=== PATIENT | male | born 1970 | race Caucasian/White ===

== ENCOUNTER 2017-02-03 09:45 | Emergency (ER) | payer OTHER ==
--- NOTE | ~2017-02-03 | CT71 ---
[facility] RADIOLOGY TEXT RESULTS PATIENT: EMETERIO RODRIGUEZ LOCATION: SED : 74 UNIT #: [id number] AGE: [address]: Blayne Shepard MD SEX: M ORDER DR: [id number] [place] [id number] E MR#: [id number] #: [id number] NAME: EMETERIO RODRIGUEZ : 1970 SEX: M STUDY DATE/TIME: 02/03/2017 9:47 UNIT: SED ROOM: STUDY DESCRIPTION: CT Head Wo Contrast Attending Physician: Blayne Shepard M.D. Ordering Physician: Blayne Shepard M.D. Primary Care Physician: Primary Care Physician No MEDICAL IMAGING REPORT This report is preliminary unless electronic signature is present. EXAM CT head without contrast. INDICATIONS Laceration to the forehead. Head injury. Hit head on trailer hitch. TECHNIQUE CT head without contrast. This CT exam was performed with one or more of the following radiation dose reduction techniques: automatic exposure control, adjustment of mA and/or kV according to patient size, and iterative reconstruction. COMPARISON None available. FINDINGS Axial noncontrast images were obtained from the skull base to the vertex. Ventricular size and configuration are normal. There is no evidence of acute infarct or hemorrhage. There are no extraaxial fluid collections. No mass lesion or mass effect is seen. There are no skull fractures. IMPRESSION Laceration over the left frontal convexity. No underlying fracture or foreign body. No acute intracranial findings. Dictated by... Venu Calloway M.D. [facility] A Service [facility] RADIOLOGY TEXT RESULTS PATIENT: EMETERIO RODRIGUEZ LOCATION: SED : 74 UNIT #: [id number] AGE: [address]: Blayne Shepard MD SEX: M ORDER DR: THIS IS AN ELECTRONICALLY VERIFIED REPORT Venu Calloway M.D. at 02/03/2017 2:37 PM Love TD: 02/03/2017 12:17 JOB #: [id number] MEDICAL IMAGING REPORT
[~2017-02-03 09:45] MED LIST: FLEXERIL10 MG PO; IBUPROFEN800 MG PO; NO MEDICATIONS
== END 2017-02-03 11:35 | disposition home or self-care (01) ==
LOC: SED 09:45
DX: S01.81XA Laceration without foreign body of other part of head, initial encounter (principal); F17.200 Nicotine dependence, unspecified, uncomplicated; W22.8XXA Striking against or struck by other objects, initial encounter
CPT/HCPCS: 12052; 70450; 99284